=== PATIENT | female | born 1985 | race Two or more races ===

== ENCOUNTER 2021-09-30 06:26 | Day surgery (SDC) | payer OTHER ==
[~2021-09-30 06:26] MED LIST: HUMALOG100 UNIT/2; LANTUS SOL100 UNIT/1
== END 2021-09-30 16:45 | disposition home or self-care (01) ==
LOC: CIR.AMB 06:26
PROVIDERS: ATTEND Orthopaedic Surgery Hand Surgery
DX: S63.498A Traumatic rupture of other ligament of other finger at metacarpophalangeal and interphalangeal joint, initial encounter (principal); Z20.822 Contact with and (suspected) exposure to COVID-19